=== PATIENT | male | born 1985 | race Two or more races ===

== ENCOUNTER 2017-02-23 13:12 | Emergency (ER) | payer OTHER ==
[~2017-02-23] VITALS: Ht 182.9 cm; Wt 118.6 kg
[2017-02-23 13:21] VITALS: BP 137/86
--- NOTE | 2017-02-23 13:45 | NUR ---
PATIENTBIB [facility]LEAGUE C/O POSTERIOR NECK PAIN X YESTERDAY; PT STATES NO TRAUMA OR INJURY TO SITE AT THIS TIME.DENIES ANY MEDICAL HX;DENIES N/V/D; SKIN IS PINK/WARM/DRY; AAOX4 WITH EVEN AND STEADY GAIT; LUNGS CLEAR BL; HR EVEN AND REGULAR; PT DENIES ANY FEVER, CP, SOB, OR COUGH AT THIS TIME; PATIENT STATES PAIN OF 8/10 AT THIS TIME;PATIENT POSITIONED FOR COMFORT; HOB ELEVATED; BEDRAILS UP X2; BED DOWN. ER MD MADE AWARE OF PT STATUS.
--- NOTE | 2017-02-23 14:08 | NUR ---
Dr. Jones evaluating patient at bedside.
[2017-02-23] MEDS ORDERED: KETOROLAC 60 MG/2 ML VIAL IM ONE (14:15)
[2017-02-23 14:49] VITALS: BP 124/82
== END 2017-02-23 14:48 | disposition home or self-care (01) ==
LOC: MED 13:12
DX: S13.4XXA Sprain of ligaments of cervical spine, initial encounter (principal); X58.XXXA Exposure to other specified factors, initial encounter; Y93.89 Activity, other specified; Y92.89 Other specified places as the place of occurrence of the external cause; Y99.8 Other external cause status
CPT/HCPCS: 96372; 99283; J1885

== ENCOUNTER 2018-07-18 05:52 | Day surgery (SDC) | payer OTHER ==
[~2018-07-18] VITALS: Ht 185.4 cm; Wt 103.0 kg
[2018-07-18 06:45] LABS: BASOPHILS % (AUTO) 0.6 % (0.0-2.0); EOSINOPHILS # (AUTO) 0.2 K/uL (0-0.4); EOSINOPHILS % (AUTO) 2.8 % (0.0-4.0); HEMATOCRIT 42.7 % (36-52); HEMOGLOBIN 13.8 g/dL (12.0-18.0); LYMPHOCYTES # (AUTO) 1.9 K/uL (2.0-11.5); LYMPHOCYTES % (AUTO) 31.8 % (20.5-51.1); MEAN CORPUSCULAR HEMOGLOBIN 27 pg (27-31); MEAN CORPUSCULAR HGB CONC 33 g/dL (33-37); MEAN CORPUSCULAR VOLUME 84.4 fL (80-94); MONOCYTES # (AUTO) 0.4 K/uL (0.8-1.0); MONOCYTES % (AUTO) 7.1 % (1.7-9.3); NEUTROPHILS # (AUTO) 3.4 K/uL (1.8-7.7); NEUTROPHILS % (AUTO) 57.7 % (42.2-75.2); PLATELET COUNT (AUTO) 235 K/uL (140-450); RED BLOOD CELL COUNT(AUTO) 5.06 MIL/uL (4.20-6.10); RED CELL DISTRIBUTION WIDTH 13.4 % (11.6-13.7); WHITE BLOOD COUNT (AUTO) 5.9 K/uL (4.8-10.8)
[2018-07-18 07:08] LABS: PROTHROMBIN TIME 9.8 secs (10.8-13.4)
[2018-07-18] MEDS ORDERED: BUPIVACAINE-MPF/EPI 0.25% 30 ML VIAL INJ ONE (07:22)
[2018-07-18] MEDS ORDERED: KETOROLAC 30 MG/ML VIAL ONE (07:30)
[2018-07-18] MEDS ORDERED: ONDANSETRON 4 MG/2 ML VIAL ONE (07:30)
[2018-07-18] MEDS ORDERED: SEVOFLURANE 250 ML BTL INH ONE (07:30)
[2018-07-18] MEDS ORDERED: DEXAMETHASONE 4 MG/ML VIAL ONE (07:30)
[2018-07-18] MEDS ORDERED: PROPOFOL 200 MG/20 ML VIAL IV ONE (07:30)
[2018-07-18] MEDS ORDERED: fentaNYL 0.05 MG/ML VIAL ONE (07:39)
[2018-07-18] MEDS ORDERED: MIDAZOLAM 2 MG/2 ML VIAL ONE (07:39)
[2018-07-18] MEDS ORDERED: LACTATED RINGERS 1,000 ML IV SCH (08:14)
[2018-07-18] MEDS ORDERED: diphenhydrAMINE 50 MG/ML VIAL IVP PRN (08:15)
[2018-07-18] MEDS ORDERED: MEPERIDINE 25 MG/ML SYR IVP PRN (08:15)
[2018-07-18] MEDS ORDERED: ONDANSETRON 4 MG/2 ML VIAL IVP PRN (08:15)
[2018-07-18] MEDS ORDERED: HYDROmorphone 1 MG/ML AMP IVP PRN (08:15)
[2018-07-18] MEDS ORDERED: HYDROcodone/APAP 5/325 MG 1 TAB TAB PO PRN (08:25)
[2018-07-18] MEDS ORDERED: NEOMYCIN/POLYMYXIN/BACITRACIN OIN 15 GM TUBE TP ONE (08:26)
[2018-07-18 09:50] LABS: CARBON DIOXIDE 27.2 mmol/L (21-32); CREATININE 1.2 mg/dL (0.7-1.3); POTASSIUM 4.2 mmol/L (3.5-5.1)
[2018-07-18 09:55] LABS: ALBUMIN 3.8 g/dL (3.4-5.0); TOTAL BILIRUBIN 0.6 mg/dL (0.0-1.0)
== END 2018-07-18 09:50 | disposition home or self-care (01) ==
LOC: MDS 05:52 → MMU 05:59 → MDS 09:50
PROVIDERS: ATTEND Surgery
DX: L72.12 Trichodermal cyst (principal); E66.9 Obesity, unspecified; Z68.30 Body mass index [BMI] 30.0-30.9, adult; Z98.890 Other specified postprocedural states
CPT/HCPCS: 11423; 36415; 71045; 80053; 85025; 85610; 85730; 86886; 86900; 86901; 88304; J0690; J1100; J1885; J2250; J2405; J2704; J3010; J3490; J7030; J7060; J7120

== ENCOUNTER 2020-04-16 18:11 | Emergency (ER) | payer OTHER ==
[~2020-04-16] VITALS: Ht 190.5 cm; Wt 113.4 kg
[2020-04-16 18:19] VITALS: BP 123/83
--- NOTE | 2020-04-16 18:19 | NUR ---
PT AMBULATED TO BED 7.
--- NOTE | 2020-04-16 18:21 | NUR ---
34/M c/o right knee pain for the past 2 days. Pt denies any injury or fall. Pt states the pain came on suddenly, mild at first then gradually worsened. Patient states the pain is worse when he tries to stand from a sitting position or going up stairs, or straightening his leg. Pt states that being in a sitting position is the most comfortable and least painful. Pt c/o 10/10 pain at this time, non radiating, to right lateral knee. Pt notes mild swelling to right knee. Pt ambulates with steady but uneven gait. VSS.
--- NOTE | 2020-04-16 19:05 | NUR ---
Received report from Shaina charge rn nurse for continuation of care.
--- NOTE | 2020-04-16 19:10 | NUR ---
ER MD Moore at bedside evaluating patient.
[2020-04-16] MEDS ORDERED: KETOROLAC 30 MG/ML VIAL IM ONE (19:15)
[2020-04-16 19:30] VITALS: BP 123/83
--- NOTE | 2020-04-16 19:30 | NUR ---
Patient discharged with v/s stable. Written and verbal after care instructions given and explained. Patient alert, oriented and verbalized understanding of instructions. Ambulatory with steady gait. All questions addressed prior to discharge. ID band removed. Patient advised to follow up with PMD. Rx of Voltaren & Motrin given. Patient educated on indication of medication including possible reaction and side effects. Opportunity to ask questions provided and answered.
== END 2020-04-16 19:30 | disposition home or self-care (01) ==
LOC: MED 18:11
DX: M25.561 Pain in right knee (principal); M76.51 Patellar tendinitis, right knee
CPT/HCPCS: 96372; 99283; J1885